=== PATIENT | female | born 1990 | race Caucasian/White ===

== ENCOUNTER 2023-04-05 17:12 | Emergency (ER) | payer SELFPAY ==
[~2023-04-05] VITALS: Ht 157.5 cm; Wt 73.0 kg
[2023-04-05 17:30] VITALS: O2SAT 99
[2023-04-05] MEDS ORDERED: LIDOCAINE 5% PATCH TOP STA (17:39)
[2023-04-05] MEDS ORDERED: IBUPROFEN 400MG TABLET PO ONE (17:45)
[2023-04-05] MEDS ORDERED: ACETAMINOPHEN 325MG TABLET PO ONE (17:45)
[2023-04-05] MEDS ORDERED: LIDO1ADH23 TP (19:25)
[2023-04-05] MEDS ORDERED: TOPUD PO (19:25)
[2023-04-05] MEDS ORDERED: IBUP-2028 MT (19:25)
[2023-04-05] MEDS ORDERED: METH-653 MT (19:25)
[2023-04-05 20:03] VITALS: BP 103/66
[2023-04-05 20:05] VITALS: PULSE 70; RESP 15; TEMP 98.2
== END 2023-04-05 20:06 | disposition home or self-care (01) ==
LOC: ER 17:12
DX: S60.211A Contusion of right wrist, initial encounter (principal); S00.81XA Abrasion of other part of head, initial encounter; X58.XXXA Exposure to other specified factors, initial encounter; Y93.89 Activity, other specified; Y92.89 Other specified places as the place of occurrence of the external cause; Y99.8 Other external cause status
CPT/HCPCS: 72040; 73090; 73110; 73562; 99284